=== PATIENT | male | born 1980 | race Caucasian/White ===

== ENCOUNTER 2018-09-25 10:37 | Emergency (ER) | payer MEDICAID ==
[~2018-09-25] VITALS: Ht 167.6 cm; Wt 77.4 kg
[2018-09-25 10:41] VITALS: BP 152/80; PULSE 83; RESP 20; Ht 167.6 cm; Wt 77.4 kg
[2018-09-25] MEDS ORDERED: ACYC800T5 PO (10:55)
[2018-09-25] MEDS ORDERED: IBUP-1542 PO (10:55)
[2018-09-25] MEDS ORDERED: TETR15DR63 BOTH EYES (10:55)
[2018-09-25] MEDS ORDERED: ACYCLOVIR 400 MG TAB PO ONE (11:00)
[2018-09-25] MEDS ORDERED: DEXAMETHASONE 10 MG/ML 1 ML INJ IM ONE (11:00)
[2018-09-25] MEDS ORDERED: IBUPROFEN 600 MG TAB PO ONE (11:00)
--- NOTE | 2018-09-25 11:15 | ERD ---
ER Documentation Chief Complaint Chief Complaint Complains of right facial numbness HPI 38-year-old man complains of 2 days of right facial paresis and drooping with increased hearing from the right eye. He denies recent trauma, denies previous episodes, he has had no cough, no fevers or chills, no headache. Patient denies recent trauma, no chest pain or shortness of breath ROS All systems reviewed and are negative except as per history of present illness. Medications Home Meds Active Scripts Tetrahydrozoline Hcl* (Visine*) 0.05% - 15 Ml Drops, 2 DROP BOTH EYES QID PRN for RED EYES, #1 EA Prov:WILL BYRD MD 09/25/18 Ibuprofen* (Motrin*) 600 Mg Tab, 600 MG PO Q8 PRN for PAIN AND/OR INFLAMMATION, #30 TAB Prov:WILL BYRD MD 09/25/18 Acyclovir* (Zovirax*) 800 Mg Tablet, 400 MG PO QID for 10 Days, TAB Prov:WILL BYRD MD 09/25/18 PMhx/Soc None Medical and Surgical Hx: pt denies Medical Hx, pt denies Surgical Hx Hx Alcohol Use: No Hx Substance Use: No Hx Tobacco Use: No Smoking Status: Never smoker FmHx Family History: No diabetes Physical Exam Vitals Vital Signs Date Temp Pulse Resp B/P (MAP) Pulse Ox O2 O2 Flow FiO2 Time Delivery Rate 09/25/18 98.4 83 20 152/80 98 10:41 (104) Physical Exam GENERAL: Well-developed, well-nourished, well-hydrated, in no apparent distress, looks nontoxic in appearance HEENT: Moist mucous membranes, positive conjunctival injection bilaterally with increased epiphora on the right, no goiter, no jaundice or icterus, extraocular movements intact without pain. NEURO: Alert and oriented 3, paralysis to the right side of the face patient exhibiting Eubanks's phenomenon on the right, gait normal, no slurred speech, strength 5/5 in upper and lower extremities bilaterally CARDIAC: Regular rate and rhythm, no murmurs rubs or gallops LUNGS: Clear bilaterally no wheezing crackles or stridor ABDOMEN: Soft nontender, no guarding, no rigidity, no rebound, no psoas sign no obturator sign. Normoactive bowel sounds PSYCH: Normal affect without agitation or irritability Results 24 hrs Current Medications Medications Dose Sig/Romi Start Time Status Last (Trade) Ordered Route PRN Stop Time Admin Dose Reason Admin 10 mg ONCE ONCE 09/25/18 DC 09/25/18 Dexamethasone IM 11:00 09/25/18 11:19 (Decadron) 11:01 Acyclovir 400 mg ONCE ONCE 09/25/18 DC 09/25/18 (Zovirax) PO 11:09/25/18 11:20 11:01 Ibuprofen 600 mg ONCE ONCE 09/25/18 DC 09/25/18 (Motrin) PO 11:09/25/18 11:19 11:01 Procedures/MDM I administered dexamethasone 10 mg IM x1, ibuprofen 600 mg p.o., acyclovir [address] scan of the brain was performed was negative for acute bleed mass or shift. Differential diagnoses considered, included but not limited to acute coronary sy ndrome, pulmonary embolism, aortic dissection, abdominal aortic aneurysm, sepsis, stroke, meningitis, encephalitis, pneumonia, appendicitis, cholecystitis, bowel obstruction, pyelonephritis, nephrolithiasis, cystitis, as well as metabolic, hematologic, and electrolyte abnormalities. As well as abscess, cellulitis, fractures, and dislocations. Patient feels much better at this time, and vital signs are normal, symptoms have improved. I did give strict instructions to return to the ED if symptoms continue or worsen, patient will otherwise follow-up with primary care physician. Patient understood instructions and agreed to plan. Disclaimer: Inadvertent spelling and grammatical errors are likely due to EHR/dictation software use and do not reflect on the overall quality of patient care. Also, please note that the electronic time recorded on this note does not necessarily reflect the actual time of the patient encounter. Departure Diagnosis: Primary Impression: Eubanks's palsy Condition: Good Patient Instructions: Eubanks's Palsy IWLL BYRD MD Sep 25, 2018 11:15
== END 2018-09-25 12:45 | disposition home or self-care (01) ==
LOC: E/R 10:37
DX: G51.0 Bell's palsy (principal); R40.2142 Coma scale, eyes open, spontaneous, at arrival to emergency department; R40.2252 Coma scale, best verbal response, oriented, at arrival to emergency department; R40.2362 Coma scale, best motor response, obeys commands, at arrival to emergency department
CPT/HCPCS: 70450; 96372; J1100; Z7502; Z7610